=== PATIENT | male | born 1975 | race Caucasian/White ===

== ENCOUNTER 2016-11-29 15:19 | Inpatient (IN) | payer MEDICAID ==
--- NOTE | 2016-11-29 15:47 | C.PDOC ---
History Of Present Illness PRESCREEN ETOH DETOX. LAST DRINK 12 PM. CURRENTLY ASYMPT. DENIES OTHER DRUG USE EXAM PSYCH CALM COOPERATIVE NO ACUTE INTOX OR WITHDRAWAL REMAINDER NEG Time Seen by Provider: 11/29/16 15:47 Chief Complaint (Nursing): Substance Abuse History Per: Patient History/Exam Limitations: no limitations Onset/Duration Of Symptoms: Persistent Current Symptoms Are (Timing): Still Present Modifying Factor(s): Alcohol Associated Symptoms: denies: Suicidal Thoughts, Suicidal Plan Recent travel outside of the [place]: No Past Medical History Reviewed: Historical Data, Nursing Documentation, Vital Signs Vital Signs: Last Vital Signs Temp 97.5 F L 11/29/16 17:50 Pulse 74 11/29/16 17:50 Resp 16 11/29/16 17:50 BP 98/59 L 11/29/16 17:50 Pulse Ox 95 11/29/16 17:50 - Medical History PMH: No Chronic Diseases Family History: States: Unknown Family Hx - Social History Hx Alcohol Use: Yes Hx Substance Use: No Review Of Systems Except As Marked, All Systems Reviewed And Found Negative. 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 ) Neurological/Psych: Oriented x3, Normal Speech, Normal Cognition ED Course And Treatment - Laboratory Results Result Diagrams: 11/29/16 16:12 11/29/16 16:12 ECG: Interpreted By Me ECG Rhythm: Sinus Rhythm Rate From EC (bpm) O2 Sat by Pulse Oximetry: 98 (ra) Pulse Ox Interpretation: Normal Reevaluation Time: 16:36 Reassessment Condition: Unchanged (med clear for detox. crisis notified) Disposition Counseled Patient/Family Regarding: Studies Performed, Diagnosis - Disposition Disposition: HOSPITALIZED Disposition Time: 17:48 Condition: STABLE - POA Present On Arrival: None - Clinical Impression Clinical Impression: Severe alcohol use disorder - Scribe Statement The provider has reviewed the documentation as recorded by the Lyric Leone Provider Attestation: All medical record entries made by the Lyric were at my direction and personally dictated by me. I have reviewed the chart and agree that the record accurately reflects my personal performance of the history, physical exam, medical decision making, and the department course for this patient. I have also personally directed, reviewed, and agree with the discharge instructions and disposition. Decision To Admit - Pt Status Changed To: Hospital Disposition Of: Inpatient - Admit Certification Admit to Inpatient:: After my assessment, the patient will require hospitalization for at least two midnights. This is because of the severity of symptoms shown, intensity of services needed, and/or the medical risk in this patient being treated as an outpatient. - InPatient: Physician Admission Certification: I certify that this patient requires 2 or more midnights of care for the following reason:: SEE NOTE - . Bed Request Type: Detox Admitting Physician: Paige Calle Patient Diagnosis: Severe alcohol use disorder
[2016-11-29 16:21] LABS: BASO # 0.1 K/uL (0.0-0.2); BASO % 2.9 % (0.0-2.0); EOS # 0.2 K/uL (0.0-0.7); EOS % 3.2 % (0.0-4.0); HEMOGLOBIN 14.9 g/dL (12.0-18.0); LYMPH # 1.8 K/uL (1.0-4.3); LYMPH % 35.7 % (20.0-40.0); MEAN CELL VOLUME 98.3 fL (80.0-94.0); MEAN CORPUSCULAR HGB CONC 34.5 g/dL (33.0-37.0); MEAN PLATELET VOLUME 8.7 fL (7.2-11.7); MONO # 0.5 K/uL (0.0-0.8); MONO % 10.4 % (0.0-10.0); NEUT # 2.4 K/uL (1.8-7.0); NEUT % 47.8 % (50.0-75.0); NRBC % 0.1 % (0.0-2.0); RBC 4.38 Mil/uL (4.40-5.90); RED CELL DISTRIBUTION WIDTH 11.7 % (11.5-14.5); WHITE BLOOD COUNT 4.9 K/uL (4.8-10.8)
[2016-11-29 16:26] LABS: URINE BACTERIA RARE (<OCC); URINE BILIRUBIN NEGATIVE (NEGATIVE); URINE BLOOD NEGATIVE (NEGATIVE); URINE CLARITY Clear (Clear); URINE COLOR Yellow (YELLOW); URINE GLUCOSE (UA) NORMAL (Normal); URINE LEUKOCYTE ESTERASE NEG Leu/uL (Negative); URINE NITRATE NEGATIVE (NEGATIVE); URINE PROTEIN NEGATIVE (NEGATIVE); URINE UROBILINOGEN NORMAL mg/dL (0.2-1.0)
[2016-11-29 16:28] LABS: ALBUMIN 4.2 g/dL (3.5-5.0)
[2016-11-29 16:30] LABS: BARBITURATES, UR NEGATIVE (NEGATIVE)
[2016-11-29 16:31] LABS: ALB/GLOB RATIO 1.4 (1.0-2.1); ALT/SGPT 54 U/L (21-72); AST/SGOT 53 U/L (17-59); BENZODIAZEPINES, UR NEGATIVE (NEGATIVE); BLOOD UREA NITROGEN 6 mg/dL (9-20); GFR AFRICAN-AMERICAN > 60; GFR NON-AFRICAN AMERICAN > 60
[2016-11-29 16:32] LABS: CALCIUM 8.7 mg/dl (8.6-10.4)
[2016-11-29 16:33] LABS: OPIATES, UR NEGATIVE (NEGATIVE)
[2016-11-29 16:34] LABS: PHENCYCLIDINE, UR NEGATIVE (NEGATIVE)
--- NOTE | 2016-11-29 18:43 | PCM.BM ---
<Jesica Sutton - Last Filed: 11/29/16 18:41> Treatment Plan Problems - Problems identified on initial assessmt Problem 1 Date Initiated: 11/29/16 Time Initiated: 18:41 Assessment reference: NA Status: Active Treatment assets and liabiliti Patient Assests: cooperative, ADL independent, physically healthy, cognitively intact Patient Liabilities: other - Milieu Protocol Maintain good personal hygiene: daily Encourage regular showers, daily Remind patient to perform daily oral care, daily Assist patient to perform ADL's Maintain personal safety: every shift Educate patient to report safety concerns to staff, every shift Monitor environment for contraband/sharps Medication safety: Monitor for expected outcome, potential side effects: every shift, Assess barriers to learning: every shift, Assess readiness for medication education: every shift <Catarina Pinedo - Last Filed: 12/01/16 10:25> Family Contact Family involvement: No known Family/SO Family contact: Patient declines to allow family contact at present - Goals for Treatment Patient goals for treatment: Complete ASI. Discuss D/C plan for LTR as requested. Discharge/Continuing Care - Education Needs Education Needs: Patient Coping Skills, Patient Placement options, Patient Community resources, Patient Personal Hygiene/Grooming - Discharge Discharge Criteria: Tolerates medication w/o severe side effects, Other, Free of Suicidal thoughts, Free of Homicidal thoughts, Free of paranoid thoughts, Free of agitation, Normal sleep pattern, Ability to care for self, No longer exhibiting s/s of withdrawal, Reduction of target symptoms Discharge to:: Substance Abuse Rehab - Additional Comments 12/01/16 10:17 Refer to [facility] as requested. - Treatment Team Participation Patient/Family/SO Statement: 12/01/16 10:16 "[facility] go [facility] Discussed with Family/SO: No Was Patient/Family/SO present at Treatment Team Meeting: Yes <Cornelia Tracey - Last Filed: 12/02/16 09:45> - Diagnosis (1) Severe alcohol use disorder Status: Acute Interventions: 12/02/16 09:45 * Assess 7x/week regarding severity of withdrawal * Educate regarding risks, benefits, side effects and alternatives of medications * Use Motivational Interviewing for abstinence * Use CBT for relapse prevention * Medication management for withdrawal symptoms * Encourage medication assisted treatment *
--- NOTE | 2016-11-30 08:48 | PCM.PSYCH ---
Initial Psychiatric Evaluation - Initial Psychiatric Evaluation Type of Admission: Voluntary Legal Status: Capacity Chief Complaint (in patient's own words): I came in to get help History of Present Illness and Precipitating Events: This is a 41 years old HM who is homeless for 6 months, and currently unemployed with history of alcohol abuse came to the [facility] [place] to get help in alcohol detox. Patient reports of long history of drinking. He has been drinking 6-12 24 oz beers along with 2-5 shots of vodka. Yesterday he consumed almost 3 24oz beers and became increasingly irritable and start withdrawing so came to the [facility] [place] to get help. Patient reports withdrawal symptoms headache, anxiety, and abdominal pain. Patient reports irritable mood but denies any feelings of depressive symptoms, denies any suicidal ideation or homicidal ideation. He denies any psychotic or manic symptoms. He also reports off and on cannabis abuse. Past medical history Cellulites of feet Current Medications: Active Medications Generic Name Dose Route Start Last Admin Trade Name Freq PRN Reason Stop Dose Admin Cephalexin Monohydrate 500 mg 11/30/16 10:00 Keflex PO BID TONIO Chlordiazepoxide 25 mg 11/30/16 00:00 11/30/16 06:50 Librium PO 12/03/16 23:59 25 mg Q6 TONIO Administration Taper Chlordiazepoxide 25 mg 11/29/16 18:11 Librium PO Q4H PRN Alcohol Withdrawal Folic Acid 1 mg 11/30/16 10:00 Folic Acid PO DAILY TONIO Multivitamins 1 tab 11/30/16 10:00 Hexavitamin PO DAILY TONIO Thiamine HCl 100 mg 11/30/16 10:00 Vitamin B1 Tab PO DAILY TONIO Trazodone HCl 50 mg 11/29/16 18:11 Desyrel PO HS PRN Insomnia Past Psychiatric History - Past Psychiatric History Previous Treatment History: Inpatient Pertinent Medical Hx (Current Medical&Sleep Prob, Allergies): Allergies Allergy/AdvReac Type Severity Reaction Status Date / Time No Known Allergies Allergy Unverified 11/29/16 15:33 Review of Systems - Review of Systems All systems: reviewed and no additional remarkable complaints except - Psychiatric Psychiatric: Anxiety, Irritability. absent: Suicidal Ideation Mental Status Examination - Personal Presentation Personal Presentation: Looks stated age - Affect Affect: Constricted - Motor Activity Motor Activity: Calm - Reliability in Providing Information Reliability in Providing Information: Good - Speech Speech: Organized - Mood Mood: Anxious - Formal Thought Process Formal Thought Process: No Impairment - Obsessions/Compulsions Obsessions: No Compulsions: No - Cognitive Functions Orientation: Person, Place, Situation, Time Sensorium: Alert Attention/Concentration: Attentive Abstract Thinking: [place] Estimate of Intelligence: Below average Judgement: Imparied, as evidence by: Poor judgement, Intact, as evidence by: Insight regarding need for hospitalization - Risk Risk: Withdrawal, Diminished functioning - Strength & Assets Inventory Strength & Assets Inventory: Life experience - Limitations Limitations: Living alone DSM 5 DX - DSM 5 DSM 5 Diagnosis: Alcohol use disorder severe Alcohol withdrawal uncomplicated Cannabis use disorder mild - Recommended/Plan of Treatment Treatment Recommendations and Plan of Treatment: Alcohol use disorder severe CBT Psychoeducation Supportive therapy, individual therapy Use [place] for abstinence Alcohol withdrawal uncomplicated CBT Psychoeducation Supportive therapy, individual therapy Librium when necessary Start Librium taper Start folic acid/thiamine/multivitamin Cannabis use disorder mild Monitor signs and symptoms Use [place] for abstinence Cellulites of feet Continue antibiotics - Smoking Cessation Smoking Cessation Initiated: No
[2016-11-30] MEDS: Multiple Vitamins Tab PO SCH (09:17)
[2016-11-30 13:57] VITALS: RESP 18
[2016-12-01] MEDS: Bacitracin Ointment 30 GM TUBE TOP SCH ×2 (09:16→17:09)
[2016-12-01] MEDS: Multiple Vitamins Tab PO SCH (09:16)
--- NOTE | 2016-12-01 09:34 | PCM.PYCHPN ---
Psychiatric Progress Note - Psychiatric Progress Note Patient seen today, length of contact: 16 min Patient Chief Complaint: I came in to get help Problems Identified/Issues Discussed: Patient seen and evaluated, chart reviewed and discussed with the nurse. The patient reports irritability and reports withdrawal symptoms including abdominal cramps, anxiety, and sweating. He is tolerating the detox protocol medications and denies any feelings of hopelessness or helplessness. He denies any suicidal ideation or homicidal ideation. He denies any side effects of the medications. Pt reports improvement in his foot pain and foot rash. Supportive therapy and psychoeducation were given. Medication Change: Yes (Librium taper) Medical Record Reviewed: Yes Mental Status Examination - Cognitive Function Orientation: Person, Place, Situation, Time Memory: Intact Attention: WNL Concentration: Poor Association: WNL Fund of Knowledge: Poor - Mood Mood: Anxious - Affect Affect: Constricted - Speech Speech: Soft - Formal Thought Process Formal Thought Process: No Impairment - Suicidal Ideation Suicidal Ideation: No - Homicidal Ideation Homicidal Ideation: No Goal/Treatment Plan - Goal/Treatment Plan Need for Continued Stay: Discharge may exacerbated symptoms, Severe functional impairment Progress Toward Problem(s) and Goals/Treatment Plan: Alcohol use disorder severe CBT Psychoeducation Supportive therapy, individual therapy Use [place] for abstinence Alcohol withdrawal uncomplicated CBT Psychoeducation Supportive therapy, individual therapy Librium when necessary Start Librium taper Start folic acid/thiamine/multivitamin Cannabis use disorder mild Monitor signs and symptoms Use [place] for abstinence Cellulites of feet Continue antibiotics - Smoking Cessation Smoking Cessation Initiated: No
[2016-12-02 06:03] VITALS: O2SAT 99
[2016-12-02] MEDS: Multiple Vitamins Tab PO SCH (09:20)
[2016-12-02] MEDS: Bacitracin Ointment 30 GM TUBE TOP SCH (09:21)
--- NOTE | 2016-12-02 09:38 | PCM.PYCHDC ---
Mental Status Examination - Mental Status Examination Orientation: Person, Place, Situation, Time Memory: Intact Mood: Anxious Affect: Broad Speech: Appropriate Attention: WNL Concentration: WNL Association: WNL Fund of Knowledge: WNL Formal Thought Process: No Impairment Suicidal Ideation: No Current Homicidal Ideation?: No Discharge Summary - Discharge Note Reason for Hospitalization: Alcohol detox Consultations:: List each consultation separately and include: 1. Reason for request. 2. Findings. 3. Follow-up Summary of Hospital Course include:: 1. Description of specific treatment plan utilized for patients during their course of treatmen. 2. Summarize the time- course for resolution of acute symptoms and/or regressed behaviors. 3. Describe issues identified and worked on during hospitalization. 4. Describe medication utilized. 5. Describe medical problems identified and treated. 6. Reassessment of suicide risk Summary of Hospital Course: The pt was admitted and started on treatment with psychotherapy, support, psychoeducation and medications. MA and CBT used. The pt attended groups and activities, as well as milieu therapy. All the risks and benefits of medications are discussed and the patient understood and agreed. After care discussed with the patient. Interested in [facility] The patient improved with the treatment provided and discharged as planned. - Final Diagnosis (DSM 5) Condition upon Discharge: STABLE DSM 5: Alcohol use disorder severe Alcohol withdrawal uncomplicated Cannabis use disorder mild Disposition: HOME/ ROUTINE Follow-up Treatment Plan: Continue below medications after discharge. Follow after care plan as discussed above. Use relapse prevention skills. Return to ER or call 911 if suicidal, homicidal or symptoms relapse. Stay away from stress, alcohol and drugs. Use relaxation techniques. See primary doctor once a year and get labs. Consider MAT, ie vivitrol Prescriptions/Medication Reconciliation: Cephalexin [Keflex] 500 mg PO BID #10 cap chlordiazePOXIDE [Librium] 25 mg PO BID #2 cap traZODone [Desyrel] 50 mg PO HS PRN #30 tab PRN Reason: Insomnia
[2016-12-02 10:03] VITALS: BP 111/73; PULSE 84; TEMP 98.2
--- NOTE | 2016-12-02 12:45 | CARD ---
APPROVED REPORT EKG Measurement Heart [id number] <Conclusion> Normal sinus rhythm Normal ECG
== END 2016-12-02 10:30 | disposition home or self-care (01) | DRG 750 ==
LOC: C.ER 15:19 → C.7D 17:49
PROVIDERS: ADMIT Psychiatry & Neurology Psychiatry; ATTEND Psychiatry & Neurology Psychiatry
PROC: HZ2ZZZZ Detoxification Services for Substance Abuse Treatment (ICD-10-PCS; principal; 2016-11-29)
PROC: HZ52ZZZ Individual Psychotherapy for Substance Abuse Treatment, Cognitive-Behavioral (ICD-10-PCS; 2016-11-29)
PROC: HZ59ZZZ Individual Psychotherapy for Substance Abuse Treatment, Supportive (ICD-10-PCS; 2016-11-29)
PROC: HZ56ZZZ Individual Psychotherapy for Substance Abuse Treatment, Psychoeducation (ICD-10-PCS; 2016-11-29)
DX: F10.230 Alcohol dependence with withdrawal, uncomplicated (principal); L03.119 Cellulitis of unspecified part of limb; F12.10 Cannabis abuse, uncomplicated; Y90.6 Blood alcohol level of 120-199 mg/100 ml; Z59.0 Homelessness; G47.00 Insomnia, unspecified

== ENCOUNTER 2016-12-15 03:02 | Emergency (ER) | payer MEDICAID ==
[2016-12-15 03:19] VITALS: RESP 20; O2SAT 98
--- NOTE | 2016-12-15 03:22 | C.PDOC ---
History Of Present Illness Patient presents to the ER with a complaint of a foreign body to the left forearm. Patient was discharged from [facility] yesterday where he had IVs placed on his left arm and believes a catheter broke in his left forearm. Denies active bleeding or pain. Time Seen by Provider: 12/15/16 03:22 Chief Complaint (Nursing): Foreign Body History Per: Patient History/Exam Limitations: no limitations Onset/Duration Of Symptoms: Hrs Current Symptoms Are (Timing): Still Present Recent travel outside of the [place]: No Past Medical History Reviewed: Historical Data, Nursing Documentation, Vital Signs Vital Signs: Last Vital Signs Temp 97.7 F 12/15/16 03:13 Pulse 84 12/15/16 03:13 Resp 20 12/15/16 03:13 BP 114/73 12/15/16 03:13 Pulse Ox 98 12/15/16 03:35 Surgical History: No Surg Hx - [facility] Procedures DETOXIFICATION SERVICES FOR SUBSTANCE ABUSE TREATMENT (11/29/16) INDIV PSYCHOTHERAPY FOR SUBSTANCE ABUSE TREATMENT, SUPPORT (11/29/16) INDIV PSYCHOTHERAPY FOR SUBSTANCE ABUSE, COGNITIV BEHAVIORAL (11/29/16) INDIV PSYCHOTHERAPY FOR SUBSTANCE ABUSE, PSYCHOEDUCATION (11/29/16) Family History: States: No Known Family Hx - Social History Hx Alcohol Use: Yes Hx Substance Use: No Review Of Systems Constitutional: Negative for: Fever, Chills Musculoskeletal: Negative for: Arm Pain Skin: Positive for: Other (Foreign body) Psych: Negative for: Anxiety Physical Exam - Physical Exam Appears: Non-toxic Skin: Warm, Dry, No Ecchymosis Extremity: Normal ROM (x4), Capillary Refill (Good), Other (Linear rigidity palpated on radial aspect of left forearm) Pulses: Left Radial: Normal, Right Radial: Normal Neurological/Psych: Oriented x3, Normal Speech, Normal Cognition ED Course And Treatment O2 Sat by Pulse Oximetry: 98 (Room air) Pulse Ox Interpretation: Normal - Other Rad forearm X-Ray: Interpreted by Me, Viewed By Me Interpretation: no fx or dislocation, no evid of foreign body Progress Note: Left forearm x-ray ordered. Disposition Counseled Patient/Family Regarding: Studies Performed, Diagnosis, Need For Followup - Disposition Referrals: [facility] [Outside] Disposition: HOME/ ROUTINE Disposition Time: 03:22 Condition: FAIR Instructions: Arm Pain (ED) Forms: , , , - Clinical Impression Clinical Impression: Forearm pain - Scribe Statement The provider has reviewed the documentation as recorded by the Scribleidy Allan All medical record entries made by the Sherrillibe were at my direction and personally dictated by me. I have reviewed the chart and agree that the record accurately reflects my personal performance of the history, physical exam, medical decision making, and the department course for this patient. I have also personally directed, reviewed, and agree with the discharge instructions and disposition.
[2016-12-15 05:34] VITALS: BP 132/76; PULSE 78; TEMP 98
--- NOTE | 2016-12-15 11:05 | RAD ---
PROCEDURE: Radiographs of the Left Forearm HISTORY: foreign object COMPARISON: None available. TECHNIQUE: Frontal and lateral views obtained. FINDINGS: BONES: Bone alignment and mineralization are normal. There is no acute fracture or bone destruction. JOINT SPACES: Unremarkable. OTHER FINDINGS: None. IMPRESSION: No acute fracture or dislocation.
== END 2016-12-15 05:33 | disposition home or self-care (01) ==
LOC: C.ER 03:02
DX: M79.632 Pain in left forearm (principal)